=== PATIENT | male | born 1955 | race Caucasian/White ===

== ENCOUNTER 2019-03-22 06:06 | Inpatient (IN) | payer OTHER ==
[2019-03-15 12:18] VITALS: BMI 29.7
--- NOTE | 2019-03-19 17:07 | HP ---
Admitting History and Physical - Admission Chief Complaint: Left hip osteoarthritis x years History of Present Illness: 63 year old male presents in regard to his left hip. Longstanding history of left hip osteoarthritis. Patient complains of pain, limited ROM, difficulty ambulation, and difficulty completing ADLs. Patient has failed conservative treatment options including PO medications, injections, activity modifications and exercise programs. At this point, patient would like to proceed with surgical interventions - left total hip arthroplasty, MAKOplasty. History Source: Patient - Past Medical History Gastrointestinal: Yes: Other (Inguinal hernia) Musculoskeletal: Yes: Osteoarthritis - Past Surgical History Past Surgical History: Yes: Hernia Repair Additional Past Surgical History: See written history and physical. - Smoking History Smoking history: Never smoked Have you smoked in the past 12 months: No - Alcohol/Substance Use Hx Alcohol Use: No Home Medications - Allergies Allergies/Adverse Reactions: Allergies Allergy/AdvReac Type Severity Reaction Status Date / Time No Known Allergies Allergy Verified 03/15/19 12:08 - Home Medications Home Medications: Ambulatory Orders NK [No Known Home Medication] 03/15/19 Review of Systems - Review of Systems Musculoskeletal: reports: Decreased ROM (left hip), Joint Pain (left hip) Physical Examination Constitutional: Yes: Well Nourished, No Distress Eyes: Yes: Conjunctiva Clear HENT: Yes: Atraumatic Neck: Yes: Supple Cardiovascular: Yes: Regular Rate and Rhythm Respiratory: Yes: Regular Gastrointestinal: Yes: Soft Musculoskeletal: Yes: Joint Stiffness (left hip) Assessment/Plan 63 year old male presents in regard to his left hip. Longstanding history of left hip osteoarthritis. Patient complains of pain, limited ROM, difficulty ambulation, and difficulty completing ADLs. Patient has failed conservative treatment options including PO medications, injections, activity modifications and exercise programs. At this point, patient would like to proceed with surgical interventions - left total hip arthroplasty, MAKOplasty. Pros, cons, risks, benefits and alternatives of a left total hip arthroplasty were discussed with the patient at length. Patient confirms his understanding and consents to proceed with a left total hip arthroplasty - MAKOplasty.
[~2019-03-22 06:06] MED LIST: CEFAZOLIN 2 GM in DEXTROSE 5%-WATER - 50 ML IVPB ONE; ROPIVICAINE 0.2%/MORPH PF/KETOROLAC - 51ML DISP.SYRINGE IA ONE; TRANEXAMIC ACID 1000 MG/10 ML VIAL IVPUSH ONE
[2019-03-22] MEDS ORDERED: GABAPENTIN 300 MG CAPSULE (FP) ONE (06:40)
[2019-03-22] MEDS ORDERED: oxyCODONE HCL 10 MG SUSTAINED ACTING TABLET ONE (06:40)
[2019-03-22] MEDS ORDERED: PANTOPRAZOLE 40 MG TABLET (FP) ONE (06:40)
[2019-03-22] MEDS ORDERED: CELECOXIB 200 MG CAPSULE ONE (06:41)
[2019-03-22] MEDS ORDERED: DEXAMETHASONE SOD PHOSPHATE/PF 10 MG/ML SDV ONE ×2 (07:14→07:20)
[2019-03-22] MEDS ORDERED: MIDAZOLAM HCL 2 MG/2 ML SINGLE DOSE VIAL ONE (07:14)
[2019-03-22] MEDS ORDERED: SUCCINYLCHOLINE CHLORIDE 200 MG/10 ML SYRINGE ONE (07:20)
[2019-03-22] MEDS ORDERED: VANCOMYCIN 1,000 MG VIAL (RESTRICTED TO ID ONLY) ONE (07:21)
[2019-03-22] MEDS ORDERED: ceFAZolin SODIUM 1 GM VIAL ONE ×2 (07:21→08:28)
[2019-03-22] MEDS ORDERED: BUPIVACAINE HCL/PF 0.5% (5MG/ML) 10 ML VIAL ONE (07:21)
[2019-03-22] MEDS ORDERED: TRANEXAMIC ACID 1000 MG/10 ML VIAL ONE ×3 (07:21→10:47)
[2019-03-22] MEDS ORDERED: DEXMEDETOMIDINE HCL 200 MCG/2 ML IVPB ONE (07:41)
[2019-03-22] MEDS ORDERED: CELECOXIB 200 MG CAPSULE PO ONE (08:00)
[2019-03-22] MEDS ORDERED: PANTOPRAZOLE 40 MG TABLET (FP) PO ONE (08:00)
[2019-03-22] MEDS ORDERED: GABAPENTIN 300 MG CAPSULE (FP) PO ONE (08:00)
[2019-03-22] MEDS ORDERED: oxyCODONE HCL 10 MG SUSTAINED ACTING TABLET PO ONE (08:00)
[2019-03-22] MEDS ORDERED: ROPIVICAINE 0.2%/MORPH PF/KETOROLAC - 51ML DISP.SYRINGE IA ONE ×2 (08:01→11:02)
[2019-03-22] MEDS ORDERED: ONDANSETRON 4 MG/2 ML VIAL IVPUSH PRN ×2 (08:53→12:10)
[2019-03-22] MEDS ORDERED: oxyCODONE HCL 5 MG TABLET PO PRN ×2 (08:54)
[2019-03-22] MEDS ORDERED: DEXAMETHASONE SOD PHOSPHATE 4 MG/1 ML VIAL ONE (08:58)
[2019-03-22] MEDS ORDERED: LACTATED RINGERS SOLUTION 1,000 ML IV SCH ×2 (09:00→12:15)
[2019-03-22] MEDS ORDERED: TRANEXAMIC ACID 1000 MG/10 ML VIAL IVPB ONE (11:01)
[2019-03-22] MEDS ORDERED: VANCOMYCIN 1,000 MG VIAL (RESTRICTED TO ID ONLY) IVPB ONE (11:01)
[2019-03-22] MEDS ORDERED: ACETAMINOPHEN 325 MG TABLET (FP) PO SCH (12:00)
--- NOTE | 2019-03-22 12:08 | OP ---
Operative Note - Note: Operative Date: 03/22/19 Pre-Operative Diagnosis: left hip OA Operation: left ARUN JAMIE Post-Operative Diagnosis: Same as Pre-op Surgeon: Boyd Che Mobile Application Developer: Antonino Morejon Anesthesia: Spinal Estimated Blood Loss (mls): 200
[2019-03-22] MEDS ORDERED: ACETAMINOPHEN 1000 MG/100 ML VIAL (NON FORMULARY) IVPB ONE (12:09)
[2019-03-22] MEDS ORDERED: MAGNESIUM HYDROX 2400MG/30ML ORAL SUSPENSION 30 ML CUP PO PRN (12:10)
[2019-03-22] MEDS ORDERED: MAG HYDROX/AL HYDROX/SIMETH 30 ML UNIT-DOSE CUP PO PRN (12:10)
[2019-03-22] MEDS: KETOROLAC TROMETHAMINE 30 MG/1 ML VIAL IVPUSH SCH ×3 (12:22→23:59)
--- NOTE | 2019-03-22 12:28 | SURG ---
Surgery Manager Social Responsibility Note Manager Social Responsibility: Antonino Morejon PA-C Date of Service: 03/22/19 Diagnosis: Left hip osteoarthritis Procedure: Tarun assisted Left hip arthroplasty I was present for the entirety of the operative procedure. For further detail, please refer to operative report. Visit type - Case Type Case Type: Scheduled - Emergency Emergency Visit: No - New patient This patient is new to me today: Yes Date on this admission: 03/22/19 - Critical Care Critical Care patient: No
[2019-03-22] MEDS: traMADol HCL 50 MG TABLET PO SCH ×3 (13:00→23:57)
--- NOTE | 2019-03-22 13:40 | SPEC ---
DATE OF OPERATION: 03/22/2019 PREOPERATIVE DIAGNOSIS: Left hip osteoarthritis. POSTOPERATIVE DIAGNOSIS: Left hip osteoarthritis. PROCEDURE: Left total hip replacement with MAKOplasty and robotic navigation. ATTENDING: Regina Alva MD LEAD QUALITY TECHNICIAN: JASWINDER Chen ANESTHESIA: Spinal plus sedation. ESTIMATED BLOOD LOSS: 200 mL. COMPLICATIONS: None. DISPOSITION: The patient was transferred to the PACU in stable condition. IMPLANTS USED: Robbie Accolade II size 7 femoral component, Robbie Trident II 60-mm acetabular component with MDM liner and MDM bipolar head with Interceramic +4 mm offset head ball, 30-, 25-, and 20-mm acetabular screws. INDICATIONS: This is a 63-year-old male who presented to the office complaining of severe bilateral hip pain. He was seen and examined by Dr. Alva and diagnosed with severe bilateral hip osteoarthritis. He underwent a right total hip replacement in 2017 and did well postoperatively. He went on to develop worsened arthritis in his left hip and had severe pain and ambulatory dysfunction despite conservative management. He was, therefore, indicated for left total hip replacement. The risks, benefits, and alternatives to the procedure were explained to the patient in great detail, and he elected to proceed with the surgery. DESCRIPTION OF PROCEDURE: On the day of surgery, the patient was taken to the operating room and placed on the OR table. Spinal anesthesia was administered by the anesthesiologist. The patient was then positioned in the lateral decubitus position on the table and all bony prominences were padded. An axillary roll was placed. The operative hip was then prepped and draped in the usual sterile fashion and intravenous antibiotics were given for infection prophylaxis. A surgical time-out was then performed with the team, and the patients identity, procedure, side, availability of implants, and the administration of antibiotics were confirmed. An approximately 15-cm longitudinal incision was made through the skin centered on the greater trochanter of the hip. This dissection was carried down through the subcutaneous tissues to the deep fascia. This fascia was then incised and a Cobra was placed around the inferior femoral neck. Electrocautery was used to reflect the anterior 40% of the gluteus medius and minimus starting at the musculotendinous junction and leaving a cuff for closure. This was reflected to reveal the capsule of the hip joint. An anterior capsulectomy was performed and the femoral head and neck were visualized. Grade 4 changes were noted diffusely throughout the joint. At this point, three small stab incisions were made superior to the main incision along the iliac crest. Three self-drilling Steinmann pins were then placed and the Minka pelvic array was attached. Reference points on the limb were then entered into the robotic device and the limb length deficiency, offset, and femoral neck resection level were then calculated by the software. The hip was then dislocated with traction and external rotation. An oscillating saw was used to make the femoral neck cut at the level previously templated, and the femoral head was removed. Attention was then turned to the acetabulum. Retractors were then placed around the acetabulum and the labrum was removed. An acetabular checkpoint pin and the Minka software were used to register the contours of the acetabulum. The acetabulum was then reamed in a single stage to the preoperatively templated size using the Minka robotic arm. The appropriately sized cup was then impacted and had solid fixation as well as the preset inclination and version of 40 and 20 degrees, respectively. A polyethylene liner was then placed in the cup. Attention was then turned back to the femur, which was externally rotated for improved visualization. A femoral neck elevator was used to present the femoral neck cut, a box osteotome was used to enter the femoral canal, and a canal finder was used to go down the femoral shaft. The Tarun broaches were used sequentially until the optimal scratch fit was achieved. This correlated with the preoperatively templated size. From here, several different offset head and neck configurations were tested until excellent stability and length were obtained. These measurements were quantified using the Minka software. All trial components were then removed, the femur was copiously irrigated, and the final components were placed. Leg length and stability were checked again and found to be excellent. Irrigation was performed again. After final implants were placed, a 3-minute dilute Betadine lavage was performed. Following this, the wound was thoroughly irrigated with normal saline via pulsatile lavage, and wound closure was begun. Wound closure was started by repairing the abductor muscles with a no. 2 FiberWire stitch in a Krackow configuration passed through bone tunnels in the greater trochanter and tied over a bony bridge. This repair was then reinforced with a 0 V-Loc 180 barbed suture. Next, no. 1 Polysorb and 0 V-Loc 180 were used to close the fascia. The deep subcutaneous tissue was closed with no. 1 Polysorb sutures, and 2-0 Polysorb was used for the superficial subcutaneous tissue. The skin was closed using both 3-0 V-Loc 90 suture in a running subcuticular fashion and SwiftSet skin adhesive. The Tarun array and pins were removed from the iliac crest and the stab incision sites were irrigated and closed with 4-0 Polysorb sutures and SwiftSet skin adhesive. Once this was completed, a sterile dressing was applied. The patient was then awakened and taken to the PACU in stable condition. REGINA ALVA M.D. [id number]
[2019-03-22] MEDS: ACETAMINOPHEN 325 MG TABLET (FP) PO SCH (17:25)
[2019-03-22] MEDS: CEFAZOLIN 2 GM/D5W 2 GM/50 ML ML IVPB SCH (17:26)
[2019-03-22] MEDS ORDERED: DEXAMETHASONE SOD PHOSPHATE 10 MG/1 ML VIAL IVPB ONE (20:00)
[2019-03-22] MEDS: oxyCODONE HCL 10 MG SUSTAINED ACTING TABLET PO SCH (21:54)
[2019-03-22] MEDS: GABAPENTIN 300 MG CAPSULE (FP) PO SCH (21:55)
[2019-03-22] MEDS: ASCORBIC ACID 500 MG TABLET (FP) PO SCH (21:55)
[2019-03-22] MEDS: SENNOSIDES/DOCUSATE COMBO (SENNA PLUS) TABLET (UD) PO SCH (21:55)
[2019-03-22] MEDS: CELECOXIB 200 MG CAPSULE PO SCH (21:55)
[2019-03-23] MEDS: ACETAMINOPHEN 325 MG TABLET (FP) PO SCH ×4 (00:14→17:55)
[2019-03-23] MEDS: CEFAZOLIN 2 GM/D5W 2 GM/50 ML ML IVPB SCH (01:36)
[2019-03-23] MEDS: traMADol HCL 50 MG TABLET PO SCH ×3 (06:20→17:55)
[2019-03-23] MEDS: KETOROLAC TROMETHAMINE 30 MG/1 ML VIAL IVPUSH SCH (06:21)
[2019-03-23 07:59] LABS: HEMATOCRIT 38.4 % (35.4-49); MCH 31.4 pg (25.7-33.7); MCHC 33.8 g/dl (32.0-35.9); MEAN CELL VOLUME 93.1 fl (80-96); MEAN PLT VOLUME 9.1 fl (7.5-11.1); PLATELET COUNT 121 K/MM3 (134-434); RBC 4.13 M/mm3 (4.00-5.60); RDW 12.4 % (11.9-15.9); WHITE BLOOD COUNT 10.1 K/mm3 (4.0-10.8)
[2019-03-23] MEDS ORDERED: ASPIRIN 325 MG TABLET PO SCH (08:00)
[2019-03-23 08:03] LABS: CALCIUM 8.4 mg/dl (8.5-10); CREATININE 1.1 mg/dl (0.55-1.3); POTASSIUM 4.4 mmol/L (3.5-5.1)
--- NOTE | 2019-03-23 08:29 | PN ---
Progress Note (short form) - Note Progress Note: ANESTHESIA POSTOP 63 YO MALE POD#1 S/P JAMIE, SPINAL AND PNB Patient resting in bed. Tolerating PO. Pain adequately controlled. VSS, Afebrile Continue current care. Encouraged IS and active participation in PT. No anesthetic complications.
[2019-03-23] MEDS ORDERED: MULTIVITAMINS (DAILY MVI) TABLET (FP) PO SCH (10:00)
[2019-03-23] MEDS ORDERED: PANTOPRAZOLE 40 MG TABLET (FP) PO SCH (10:00)
[2019-03-23] MEDS: GABAPENTIN 300 MG CAPSULE (FP) PO SCH (10:33)
[2019-03-23] MEDS: CELECOXIB 200 MG CAPSULE PO SCH (10:33)
[2019-03-23] MEDS: SENNOSIDES/DOCUSATE COMBO (SENNA PLUS) TABLET (UD) PO SCH (10:33)
[2019-03-23] MEDS: ASCORBIC ACID 500 MG TABLET (FP) PO SCH (10:34)
[2019-03-23] MEDS: oxyCODONE HCL 10 MG SUSTAINED ACTING TABLET PO SCH (10:34)
--- NOTE | 2019-03-23 13:23 | DS ---
Physical Examination Vital Signs: Vital Signs Temperature 97.7 F 03/23/19 10:00 Pulse Rate 75 03/23/19 10:00 Respiratory Rate 18 03/23/19 10:00 Blood Pressure 111/64 03/23/19 10:00 O2 Sat by Pulse Oximetry (%) 96 03/23/19 08:22 Labs: CBC, BMP 03/23/19 07:16 03/23/19 07:16 Discharge Summary Reason For Visit: LEFT HIP OSTEOARTHRITIS Current Active Problems Osteoarthritis of left hip (Acute) Procedures: Principal: left ARUN JAMIE Hospital Course: Admitted for elective surgery. Procedure performed without complications. Pt received postoperative antibiotic prophylaxis and DVT ppx. Ambulated with physical therapy. Stable for discharge home with outpatient followup. Condition: Stable - Instructions Diet, Activity, Other Instructions: Dr Che - Hip Replacement Instructions Keep the Aquacel dressing on until removed by Dr. Che in 2 weeks - it is antibacterial and waterproof and you can shower with it on. Call the office for a follow-up appointment with Dr. Che in 2 weeks. Take one Aspirin 325mg daily for 6 weeks to prevent blood clots in your legs. Take one Pantoprazole 40mg daily for 6 weeks to protect against heartburn and ulcers. Take Cephalexin (antibiotic) 3x/day for 10 days to help prevent skin infection. Take Celebrex 200mg twice daily for 30 days to reduce swelling and inflammation. Take a multivitamin, stool softener and extra Vitamin C supplement daily. For pain: *Mild pain (1-3/10): Take 1 Tramadol tablet every 4 hours as needed. Moderate pain (4-6/10): Take 1 Tramadol tablet and 1 Percocet tablet every 4 hours as needed. Severe pain (7-10/10): Take 1 Tramadol tablet and 2 Percocet tablets every 4 hours as needed. Activity: You can put as much weight on the operative leg as you want. For the first 6 weeks, all you need to do is walk around the house, go up/down stairs, and sit down/get up. After 6 weeks when everything is healed (and bone has grown into the implant) you will be sent for more intensive outpatient physical therapy. Always use a walker or cane for balance and to prevent falls. Expect to see swelling / bruising from the operative site all the way down to your toes. Wear the compression stocking on the operative side during the day to minimize how much swelling there is in your foot/ankle. Don't wear the stocking at night. You don't have to wear the stocking on the other side. Disposition: VNS/HOME HEALTH CARE - Home Medications Comprehensive Discharge Medication List: Ambulatory Orders Ascorbic Acid [Vitamin C -] 500 mg PO BID tablet 03/22/19 Aspirin [ASA -] 325 mg PO DAILY@0800 tablet 03/22/19 Celecoxib [CeleBREX -] 200 mg PO BID #60 capsule 03/22/19 Cephalexin Monohydrate [Keflex -] 500 mg PO TID #30 capsule 03/22/19 Multivitamins [Multivit ([facility] Formulary)] 1 tab PO DAILY tab 03/22/19 Oxycodone HCl/Acetaminophen [Percocet 5-325 mg Tablet] 1 - 2 tab PO Q4H PRN #60 tablet MDD 10 03/22/19 Pantoprazole Sodium [Protonix -] 40 mg PO DAILY #40 tablet.ec 03/22/19 Sennosides/Docusate Sodium [Pericolace -] 2 tablet PO BID tablet 03/22/19 traMADol HCL [Ultram -] 50 mg PO Q4H PRN #60 tablet MDD 6 03/22/19
--- NOTE | 2019-03-23 13:23 | PN ---
Progress Note (short form) - Note Progress Note: Pt seen and examined. Doing very well. AVSS Selected Entries 03/23/19 03/23/19 08:22 10:00 Temperature 97.7 F Pulse Rate 75 Respiratory 18 Rate Blood Pressure 111/64 O2 Sat by Pulse 96 Oximetry (%) Oxygen Delivery Room Air Method Laboratory Tests 03/23/19 03/23/19 07:16 07:16 WBC 10.1 Hgb 13.0 Hct 38.4 Plt Count 121 L Sodium 135 L Potassium 4.4 Chloride 106 Carbon Dioxide 23 Anion Gap 6 L BUN 20.0 H Creatinine 1.1 Random Glucose 138 H Calcium 8.4 L Gen: NAD LLE: c/d/i, NVID A/P POD#1 s/p L ARUN AYALA PT/OOB D/C home today
[2019-03-23 14:13] VITALS: BP 113/65; PULSE 72; TEMP 98
--- NOTE | 2019-03-26 12:49 | PATH ---
Surgical Pathology Report Patient Name: REGINA THOMAS Med. Rec. #: [id number] /Age/Gender: 1955 (Age: 63) / M Account: [id number] Location: [facility] Taken: 03/22/2019 Received: 03/22/2019 Reported: 03/26/2019 Physicians: Regina Che M.D. Specimen(s) Received LEFT FEMORAL HEAD Clinical History Left hip osteoarthritis Final Diagnosis LEFT FEMORAL HEAD, RESECTION: DEGENERATIVE JOINT DISEASE, LEFT HIP. Electronically Signed Artemio Edward M.D. Gross Description Received in formalin, labeled "left femoral head" is a 5.2 x 5 x 4.2 cm. femoral head with 0.4 cm portion of femoral neck. The margin of resection is smooth. The articular surface shows areas of eburnation and granularity. The underlying trabecular bone is yellow and hard. A sales representative metals section is submitted in one cassette, following decalcification. AE/03/25/2019 ebram/03/25/2019
== END 2019-03-23 17:51 | disposition home health service (06) | DRG 470 ==
LOC: FM/S 06:06
PROVIDERS: ADMIT Student in an Organized Health Care Education/Training Program; ATTEND Student in an Organized Health Care Education/Training Program
PROC: 8E0W0CZ Robotic Assisted Procedure of Trunk Region, Open Approach (ICD-10-PCS; 2019-03-22)
PROC: 0SRB0JZ Replacement of Left Hip Joint with Synthetic Substitute, Open Approach (ICD-10-PCS; principal; 2019-03-22 09:04)
DX: M16.12 Unilateral primary osteoarthritis, left hip (principal)
CPT/HCPCS: 36415; 73502-TC-LT-FY; 80048; 85027; 88305-TC; 88311-TC; 94760; 97116-GP; 97161-GP; J0131; J1100